=== PATIENT | female | born 1990 | race Caucasian/White ===

== ENCOUNTER → 2025-02-14 15:01 | Outpatient (CLI) | payer OTHER, SELFPAY ==
[2025-02-14 15:52] LABS: Add Manual Diff / Slide Review NO; Hematocrit 36.1 % (36-46); Hemoglobin 12.4 g/dL (12.0-16.0); Lymphocytes Absolute Auto 2200 /uL (1100-4500); Mean Corpuscular HGB Conc 34.4 % (30-36); Mean Corpuscular Hemoglobin 30.4 PG (26-34); Mean Corpuscular Volume 88.4 fL (80-100); Platelet Count 216 X10^3/uL (150-400)
[2025-02-14 16:14] LABS: HEMOLYSIS < 15 (0-50); Iron 84 ug/dL (37-170)
[2025-02-14 16:25] LABS: Percent Iron Saturation 29 % (15-50); Total Iron Binding Capacity 290 ug/dL (265-497); Transferrin 241 mg/dL (206-381)
[2025-02-14 16:47] LABS: TSH w/ Reflex to FT4 2.35 uIU/mL (0.47-4.68)
[2025-02-14 16:50] LABS: Ferritin 92 ng/mL (6-137)
[2025-02-14 17:23] LABS: Folate 13.9 ng/mL (2.76-20.0); Vitamin B12 741 pg/mL (239-931); Vitamin D 25 Hydroxy (D3) 46.4 ng/mL (30.0-100.0)
== END ==
PROVIDERS: PCP Nurse Practitioner Family; Referring Provider Nurse Practitioner Family; Visit Provider Nurse Practitioner Family
DX: Z86.2 Personal history of diseases of the blood and blood-forming organs and certain disorders involving the immune mechanism (principal); R53.83 Other fatigue; N92.0 Excessive and frequent menstruation with regular cycle
CPT/HCPCS: 36415; 82306; 82607; 82728; 82746; 83540; 83550; 84443; 85025